=== PATIENT | male | born 1965 | race Caucasian/White ===

== ENCOUNTER → 2016-10-25 | Outpatient (CLI) | payer BC ==
--- NOTE | 2016-10-25 11:54 | REP ---
LUMBAR SPINE, FIVE VIEWS: HISTORY: Back pain. COMPARISON: 11/30/2001. There is no acute fracture or subluxation. The L2-3 through L5-S1 intervertebral discs are decreased in height consistent with disc degeneration. The facet joints are normal in appearance. IMPRESSION: Degenerative change as described above. Signed by Philipp Pradhan MD 10/25/2016 12:03 P
== END ==
LOC: M WUC 11:13
PROVIDERS: ATTEND Physician Assistant
DX: M54.5 Low back pain (principal)

== ENCOUNTER → 2019-03-06 | Outpatient (CLI) | payer BC ==
[2019-03-09 00:06] LABS: Lyme Disease IgG/IgM Antibodie <0.91 ISR (0.00-0.90); Lyme Disease IgM Ab Quantitati <0.80 index (0.00-0.79)
== END ==
LOC: M WUC 16:04
PROVIDERS: ATTEND Family Medicine
DX: M25.50 Pain in unspecified joint (principal)

== ENCOUNTER → 2019-07-12 | Outpatient (REF) | payer BC ==
[2019-07-12 18:04] LABS: CHLAMYDIA DNA AMPLIFICATION NEGATIVE (NEGATIVE); GC DNA AMPLIFICATION NEGATIVE (NEGATIVE)
== END ==
LOC: M LAB REF 16:27
PROVIDERS: ATTEND Registered Nurse
DX: D48.5 Neoplasm of uncertain behavior of skin (principal)

== ENCOUNTER 2021-09-09 16:34 | Day surgery (SDC) | payer BC, OTHER ==
[~2021-09-09] VITALS: Ht 177.8 cm; Wt 90.5 kg
[2021-09-09] MEDS ORDERED: BOOSTRIX/ADACEL VACCINE (DIPHTH/PERTUSS/ACELL/TETANUS) 0.5ML SYR IM ONE (17:30)
[2021-09-09] MEDS ORDERED: ceFAZolin SOD 2 GM in IV 1 EA IV ONE (17:35)
[2021-09-09] MEDS ORDERED: NS 1,000 ML IV SCH (18:15)
[2021-09-09 18:37] LABS: RSV AMPLIFICATION NEGATIVE (NEGATIVE)
[2021-09-09] MEDS ORDERED: fentaNYL 250 MCG/5 ML INJECTION (J3010) As Ordered ONE (18:50)
[2021-09-09] MEDS ORDERED: MIDAZOLAM INJ 2MG/2ML VIAL (J2250 PER 1MG) As Ordered ONE (18:51)
[2021-09-09] MEDS ORDERED: SUCCINYLCHOLINE 100 MG/5 ML SYRINGE (J0330) As Ordered ONE (18:52)
[2021-09-09] MEDS ORDERED: LIDOCAINE 2% 100MG/5ML SDV (FOR ANES.) As Ordered ONE (18:52)
[2021-09-09] MEDS ORDERED: propofoL 200 MG/20 ML VIAL As Ordered ONE ×2 (18:52→21:59)
[2021-09-09] MEDS ORDERED: BACITRACIN OINTMENT 30GM TUBE As Ordered ONE (18:55)
[2021-09-09] MEDS ORDERED: ceFAZolin 1GM VIAL (J0690 PER 500MG) As Ordered ONE (18:56)
[2021-09-09] MEDS ORDERED: HOME MED LIST COMPLETE! XX SCH (19:00)
[2021-09-09] MEDS ORDERED: ceFAZolin SOD 1 GM in D5W MINI-BAG PLUS 50 ML IV ONE (19:05)
[2021-09-09] MEDS ORDERED: ceFAZolin 2 GM/D5W 50 ML IV BAG (J0690 PER 500MG) As Ordered ONE (19:48)
[2021-09-09] MEDS ORDERED: dexameTHASONE 4 MG/ML 1ML VIAL (J1100 PER 1MG) As Ordered ONE (20:27)
[2021-09-09] MEDS ORDERED: fentaNYL 100 MCG/2 ML INJECTION (J3010) As Ordered ONE (20:42)
[2021-09-09] MEDS ORDERED: BUPIVACAINE HCL 0.25% 30ML VIAL As Ordered ONE (20:49)
[2021-09-09] MEDS ORDERED: ACETAMINOPHEN 1000MG 100ML IV BTL (OFIRMEV) (J0131 PER 10MG) As Ordered ONE (21:48)
[2021-09-09] MEDS ORDERED: KETOROLAC 60MG 2ML VIAL As Ordered ONE (21:51)
[2021-09-09] MEDS ORDERED: ONDANSETRON 4MG/2ML VIAL As Ordered ONE (22:16)
[2021-09-09] MEDS ORDERED: HYDROMORPHONE HCL 0.5 MG/ 0.5 ML SYRINGE (J1170 PER 1) IV PRN (22:50)
[2021-09-09] MEDS ORDERED: fentaNYL 100 MCG/2 ML INJECTION (J3010) IV PRN (22:50)
[2021-09-09] MEDS ORDERED: ONDANSETRON 4MG/2ML VIAL IV PRN ×2 (22:50→23:00)
[2021-09-09] MEDS ORDERED: LR 1,000 ML IV SCH (22:50)
[2021-09-09] MEDS ORDERED: oxyCODONE 5MG TAB PO PRN (22:50)
[2021-09-09] MEDS ORDERED: MORPHINE 4 MG/ML 1ML VIAL/SYRINGE (J2270) IV PRN (22:55)
[2021-09-09] MEDS: LR 1,000 ML IV SCH (22:55)
[2021-09-09 23:45] VITALS: BP 143/86
[2021-09-10] MEDS ORDERED: UNRESOLVED CLARIFICATION ENTRY XX SCH (00:01)
[2021-09-10 00:15] VITALS: BP 145/88
[2021-09-10] MEDS ORDERED: MORPHINE 4 MG/ML 1ML VIAL/SYRINGE (J2270) IV PRN (00:30)
[2021-09-10] MEDS ORDERED: PERCOCET 5MG/325MG TAB PO PRN (00:30)
[2021-09-10 00:46] VITALS: O2SAT 94
[2021-09-10 01:07] VITALS: BP 145/86
[2021-09-10] MEDS: ceFAZolin SOD 1 GM in D5W MINI-BAG PLUS 50 ML IV SCH ×2 (01:57→08:55)
[2021-09-10 02:00] VITALS: BP 145/85
[2021-09-10 03:00] VITALS: BP 143/86
[2021-09-10] MEDS: KETOROLAC 30 MG/ML 1ML VIAL IV SCH ×2 (04:00→10:00)
[2021-09-10 04:02] VITALS: BP 123/64
[2021-09-10] MEDS: LR 1,000 ML IV SCH (04:20)
[2021-09-10] MEDS ORDERED: PERCOCET PO (11:11)
[2021-09-10] MEDS ORDERED: CEPH500T PO (11:15)
== END 2021-09-10 12:30 | disposition home or self-care (01) ==
LOC: EDBD 16:34 → M ED 16:34 → M SDC 21:34 → M MS5PR 23:32 → M SDC 09-10 12:30
PROVIDERS: ATTEND Orthopaedic Surgery Hand Surgery
DX: S61.412A Laceration without foreign body of left hand, initial encounter (principal); S61.012A Laceration without foreign body of left thumb without damage to nail, initial encounter; S62.25 Fracture of neck of first metacarpal bone; S66.022A Laceration of long flexor muscle, fascia and tendon of left thumb at wrist and hand level, initial encounter; S64.32XA Injury of digital nerve of left thumb, initial encounter; S65.412A Laceration of blood vessel of left thumb, initial encounter; S64.491A Injury of digital nerve of left index finger, initial encounter; W31.2XXA Contact with powered woodworking and forming machines, initial encounter; Y92.098 Other place in other non-institutional residence as the place of occurrence of the external cause; Y93.H3 Activity, building and construction; Y99.8 Other external cause status
CPT/HCPCS: 11012; 26615; 73130; 76000; 87631; 90471; 90715; 93041; 94760; 96365; 96366; 96375; 96376; 99285; J0131; J0330; J0690; J1100; J1885; J2250; J2405; J3010

== ENCOUNTER 2022-01-12 16:23 | Emergency (ER) | payer BC, OTHER ==
[~2022-01-12] VITALS: Ht 177.8 cm; Wt 94.5 kg
[~2022-01-12 16:23] MED LIST: CEPH500T PO; PERCOCET PO
[2022-01-12 16:25] VITALS: BP 150/89
== END 2022-01-12 20:03 | disposition left against medical advice (07) ==
LOC: M ED 16:23
DX: Z53.21 Procedure and treatment not carried out due to patient leaving prior to being seen by health care provider (principal)

== ENCOUNTER 2024-12-23 12:18 | Emergency (ER) | payer BC, OTHER ==
[~2024-12-23] VITALS: Ht 177.8 cm; Wt 90.9 kg
[2024-12-23] MEDS: LIDOCAINE 1% MDV 20ML VIAL SC ONE (15:05)
[2024-12-23] MEDS ORDERED: CEPH500C PO (15:34)
[2024-12-23 15:44] VITALS: BP 142/89; TEMP 96.2; O2SAT 100
== END 2024-12-23 15:45 | disposition home or self-care (01) ==
LOC: M ED 12:18
DX: S62.630B Displaced fracture of distal phalanx of right index finger, initial encounter for open fracture (principal); Z79.2 Long term (current) use of antibiotics
CPT/HCPCS: 73140; 96372; 99283; J0665